=== PATIENT | female | born 1945 | race Caucasian/White ===

== ENCOUNTER 2019-05-25 13:25 | Emergency (ER) | payer OTHER, MEDICARE ==
[~2019-05-25] VITALS: Ht 149.9 cm; Wt 72.6 kg
[2019-05-25 15:16] LABS: BASOPHILS ABSOLUTE AUTO 0.05 K/mm3 (0.00-0.23); BASOPHILS PERCENT AUTO 1 % (0-2); EOSINOPHILS ABSOLUTE AUTO 0.04 K/mm3 (0.00-0.68); EOSINOPHILS PERCENT AUTO 1 % (0-6); Hematocrit 43.2 % (33.0-51.0); Hemoglobin 14.1 g/dL (11.5-16.0); IMMATURE GRAN ABSOLUTE AUTO 0.03 K/mm3 (0.00-0.10); IMMATURE GRAN PERCENT AUTO 0 % (0-1); LYMPHOCYTES ABSOLUTE AUTO 1.45 K/mm3 (0.84-5.20); LYMPHOCYTES PERCENT AUTO 19 % (21-46); MONOCYTES ABSOLUTE AUTO 0.69 K/mm3 (0.16-1.47); MONOCYTES PERCENT AUTO 9 % (4-13); Mean Corpuscular HGB 31.6 pg (26.0-34.0); Mean Corpuscular HGB Conc 32.6 g/dL (31.5-36.5); Mean Corpuscular Volume 97 fL (80-100); Mean Platelet Volume 9.1 fL (9.1-12.4); NEUTROPHILS ABSOLUTE AUTO 5.49 K/mm3 (1.96-9.15); NEUTROPHILS PERCENT AUTO 71 % (41-73); Platelet Count 305 K/mm3 (150-400); RDW Coefficient Variation 13.8 % (11.7-14.2); RDW Standard Deviation 49.4 fL (35.1-46.3); Red Blood Cell Count 4.46 M/mm3 (3.80-5.20); White Blood Cell Count 7.75 K/mm3 (4.00-11.30)
[2019-05-25] MEDS ORDERED: DULO60 PO (15:26)
[2019-05-25] MEDS ORDERED: AMLO5 PO (15:26)
[2019-05-25] MEDS ORDERED: ZOCOR20 MG PO (15:26)
[2019-05-25] MEDS ORDERED: Percocet 5-3251 EACH PO (15:27)
[2019-05-25] MEDS ORDERED: OMEPRAZOLE20 MG PO (15:27)
[2019-05-25] MEDS ORDERED: LETR2.5 PO (15:43)
[2019-05-25 15:48] LABS: Alanine Aminotransfer (ALT/SGP 27 U/L (12-78); Albumin, Blood 3.5 g/dL (3.4-5.0); Albumin/Globulin Ratio 0.8 (0.8-1.8); Alk Phos 86 U/L (50-136); Anion Gap 5 mmol/L (6-16); Aspartate Aminotrans (AST/SGOT 18 U/L (12-37); Bilirubin, Total 0.4 mg/dL (0.1-1.0); Blood Urea Nitrogen 16 mg/dL (8-24); Bun/Creatinine Ratio 22.5 (12.0-20.0); CO2, Blood 25 mmol/L (21-32); Calcium, Blood 9.1 mg/dL (8.5-10.1); Chloride, Blood 110 mmol/L (98-108); Creatinine, Blood 0.71 mg/dL (0.40-1.00); Globulin, Blood 4.3 g/dL (2.2-4.0); Glomerular Filtration Rate >60 (60-); Glucose, Blood 99 mg/dL (70-99); Potassium, Blood 4.1 mmol/L (3.5-5.5); Sodium, Blood 140 mmol/L (136-145); Total Protein, Blood 7.8 g/dL (6.4-8.2); Troponin I <0.015 ng/mL (0.000-0.040)
[2019-05-25] MEDS ORDERED: Prednisone20 MG PO (16:02)
[2019-05-25] MEDS ORDERED: Augmentin 875-1 EACH PO (16:02)
== END 2019-05-25 16:48 | disposition home or self-care (01) ==
LOC: ER 13:25
PROVIDERS: Physician Assistant
DX: J40 Bronchitis, not specified as acute or chronic (principal); Z91.048 Other nonmedicinal substance allergy status; Z87.891 Personal history of nicotine dependence
CPT/HCPCS: 36415; 71046; 80053; 84484; 85025; 93005; 93010; 99284-25; J7512

== ENCOUNTER 2019-06-08 05:30 | Day surgery (SDC) | payer MEDICARE ==
[~2019-06-08] VITALS: Ht 152.4 cm; Wt 74.1 kg
[~2019-06-08 05:30] MED LIST: AMLO5 PO; Augmentin 875-1 EACH PO; DULO60 PO; LETR2.5 PO; OMEPRAZOLE20 MG PO; Percocet 5-3251 EACH PO; Prednisone20 MG PO; ZOCOR20 MG PO
== END 2019-06-08 16:00 | disposition home or self-care (01) ==
LOC: ORSCSDS 05:30
PROVIDERS: Orthopaedic Surgery
PROC: 0LN80ZZ Release Left Hand Tendon, Open Approach (ICD-10-PCS; principal; 2019-06-08 13:30)
DX: M65.332 Trigger finger, left middle finger (principal); E78.5 Hyperlipidemia, unspecified; F32.9 Major depressive disorder, single episode, unspecified; I10 Essential (primary) hypertension; J45.909 Unspecified asthma, uncomplicated; E66.9 Obesity, unspecified; Z68.32 Body mass index [BMI] 32.0-32.9, adult; Z87.891 Personal history of nicotine dependence; Z79.899 Other long term (current) drug therapy
CPT/HCPCS: J0690; J2001; J2250; J3010; J7120

== ENCOUNTER → 2020-12-11 | Outpatient (CLI) | payer MEDICARE | END | disposition home or self-care (01) | LOC: LAB SHORT 12:11 → LAB 12:11 | DX: D48.5 Neoplasm of uncertain behavior of skin (principal) | CPT/HCPCS: 88304; 88305 ==

== ENCOUNTER 2020-12-24 06:58 | Day surgery (SDC) | payer OTHER ==
--- NOTE | 2020-12-24 08:12 | NUR ---
Ambulatory in Day Surgery History, Chart, Medications and Allergies reviewed before start of procedure.Patient confirms NPO status IN THE LAT 4-6 HRS and agrees with scheduled PROCEDURE.DENIES ANY NEW CHEST PAINS.
--- NOTE | 2020-12-24 08:41 | NUR ---
Patient up to Ambulate independently. Gait steady.VSS.ROOM AIR. Discharge instructions reviewed with patient. Patient verbalizes understanding. Copy given to patient to take home. PT AMBULATORY AT DISCHARGE.
== END 2020-12-24 23:04 | disposition home or self-care (01) ==
LOC: CT 06:58 → ORD 06:58 → ORSCMMR 06:58 → ORD 07:30 → CT 08:00 → ORSCMMR 23:04
DX: R07.89 Other chest pain (principal); I25.10 Atherosclerotic heart disease of native coronary artery without angina pectoris; R06.09 Other forms of dyspnea; I47.9 Paroxysmal tachycardia, unspecified; I10 Essential (primary) hypertension; E78.5 Hyperlipidemia, unspecified
CPT/HCPCS: 75574; Q9967